=== PATIENT | male | born 1965 | race Caucasian/White ===

== ENCOUNTER 2018-01-29 15:13 | Inpatient (IN) | payer OTHER ==
[2018-01-29 15:21] VITALS: BMI 32.0
--- NOTE | 2018-01-29 18:20 | HP ---
COWS - Scale Resting Pulse: 1= [place] 81-100 Sweatin= Chills/Flushing Restless Observation: 3= Extraneous Movement Pupil Size: 2= Moderately Dilated Bone or Joint Aches: 4=Acute Joint/Muscle Pain (BACK PAIN) Runny Nose/ Eye Tearin= Nasal Congestion GI Upset > 30mins: 0= None Tremor Observation: 2= Slight Tremor Visible Yawning Observation: 1= 1-2x During Session Anxiety or Irritability: 2=Irritable/Anxious Goose Flesh Skin: 0=Smooth Skin COWS Score: 17 Admission ROS BHS - HPI Chief Complaint: WITHDRAWAL SX FROM PERCOCETS Allergies/Adverse Reactions: Allergies Allergy/AdvReac Type Severity Reaction Status Date / Time penicillin G Allergy Severe Hives Verified 01/29/18 16:35 History of Present Illness: 52 Y/O MALE WITH A HX OF PERCOCET DEPENDENCE SEEKING DETOX TX. PT STATES "IT WAS A RX BUT NOW IT'S NOT". Exam Limitations: No Limitations - Ebola screening Have you traveled outside of the country in the last 21 days: No Have you had contact with anyone from an Ebola affected area: No Have you been sick,other than usual withdrawal symptoms: No Do you have a fever: No - Review of Systems Constitutional: Chills, Night Sweats, Changes in sleep EENT: reports: Tearing, Nose Congestion Respiratory: reports: No Symptoms reported Cardiac: reports: No Symptoms Reported GI: reports: Constipated, Diarrhea, Nausea, Vomiting : reports: No Symptoms Reported Musculoskeletal: reports: Back Pain, Joint Pain, Muscle Pain Integumentary: reports: No Symptoms Reported Neuro: reports: Headache Endocrine: reports: No Symptoms Reported Hematology: reports: No Symptoms Reported Psychiatric: reports: Anxious, Depressed ("I TAKE PROZAC) Other Systems: Reviewed and Negative Patient History - Patient Medical History Hx Anemia: No Hx Asthma: No Hx Chronic Obstructive Pulmonary Disease (COPD): No Hx Cancer: No Hx Cardiac Disorders: No Hx Congestive Heart Failure: No Hx Hypertension: Yes (ON MED) Hx Hypercholesterolemia: Yes (ON MED) Hx Pacemaker: No HX Cerebrovascular Accident: No Hx Seizures: No Hx Dementia: No Hx Diabetes: No Hx Gastrointestinal Disorders: No Hx Liver Disease: No Hx Genitourinary Disorders: No Hx Sexually Transmitted Disorders: No Hx Renal Disease (ESRD): No Hx Thyroid Disease: No Hx Human Immunodeficiency Virus (HIV): No Hx Hepatitis C: No Hx Depression: Yes (prozac) Hx Suicide Attempt: No (DENIES S/I) Hx Bipolar Disorder: No Hx Schizophrenia: No - Patient Surgical History Past Surgical History: Yes Hx Neurologic Surgery: No Hx Cataract Extraction: No Hx Cardiac Surgery: No Hx Lung Surgery: No Hx Breast Surgery: No Hx Breast Biopsy: No Hx Abdominal Surgery: Yes (R inguinal hernia 20 yrs ago) Hx Appendectomy: No Hx Cholecystectomy: No Hx Genitourinary Surgery: No Hx Orthopedic Surgery: No Anesthesia Reaction: No - PPD History Previous Implant?: Yes Documented Results: Negative w/proof Date: 05/25/16 PPD to be Administered?: Yes - Reproductive History Patient is a Female of Child Bearing Age (11 -55 yrs old): No (MALE) - Smoking Cessation Smoking history: Current every day smoker Have you smoked in the past 12 months: Yes Aproximately how many cigarettes per day: 20 Hx Chewing Tobacco Use: No Initiated information on smoking cessation: Yes 'Breaking Loose' booklet given: 01/29/18 - Substance & Tx. History Hx Alcohol Use: No Hx Substance Use: Yes (PERCOCETS) Hx Substance Use Treatment: Yes - Substances Abused Marijuana/Hashish Route: Smoking Frequency: Daily Amount used: 1 blunt Date of Last Use: 01/27/18 Percocet Route: Oral Frequency: Daily Amount used: 12 ( 30mg) tablets Date of Last Use: 01/29/18 Family Disease History - Family Disease History Family Disease History: Heart Disease: Father (ALIVE) Admission Physical Exam BHS - Vital Signs Vital Signs: Vital Signs - 24 hr 01/29/18 15:20 Temperature 97 F L Pulse Rate 97 H Respiratory 18 Rate Blood Pressure 126/82 - Physical General Appearance: Yes: Moderate Distress, Irritable, Anxious HEENTM: Yes: EOMI, Normocephalic, SABRINA, Nasal Congestion Respiratory: Yes: Chest Non-Tender, Lungs Clear, Normal Breath Sounds Neck: Yes: No masses,lesions,Nodules, Supple, Trachea in good position Breast: Yes: Breast Exam Deferred Cardiology: Yes: Regular Rhythm, Regular Rate, S1, S2 Abdominal: Yes: Normal Bowel Sounds, Non Tender, Flat, Soft Genitourinary: Yes: Other (N/C) Back: Yes: Within Normal Limits Musculoskeletal: Yes: full range of Motion, Gait Steady Extremities: Yes: Normal Range of Motion, Non-Tender 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, Fully Oriented, Alert, Motor Strength 5/5 Integumentary: Yes: Dry, Warm Lymphatic: Yes: Within Normal Limits - Diagnostic (1) Opioid dependence with withdrawal Current Visit: Yes Status: Acute (2) History of - hypertension Current Visit: Yes Status: Chronic (3) Nicotine dependence Current Visit: Yes Status: Chronic Qualifiers: Nicotine product type: cigarettes Substance use status: uncomplicated Qualified Code(s): F17.210 - Nicotine dependence, cigarettes, uncomplicated (4) Cannabis dependence, uncomplicated Current Visit: Yes Status: Acute (5) Hypercholesterolemia Current Visit: Yes Status: Chronic Cleared for Admission [facility] - Detox or Rehab [facility] Level of Care: Medically Managed Detox Regimen/Protocol: Methadone [facility] Breath Alcohol Content Breath Alcohol Content: 0 Urine Drug Screen - Results Drug Screen Negative: No Urine Drug Screen Results: THC-Marijuana, MARLEN-Cocaine, OPI-Opiates, TCA- Tricyclic Antidepress, OXY-Oxycodone
[2018-01-29] MEDS ORDERED: P-EPHED 60MG/TRIPROLIDI 2.5MG TABLET PO PRN (18:33)
[2018-01-29] MEDS ORDERED: IBUPROFEN 400 MG TABLET (FP) PO PRN (18:33)
[2018-01-29] MEDS ORDERED: MAGNESIUM HYDROX 2400MG/30ML ORAL SUSPENSION 30 ML CUP PO PRN (18:33)
[2018-01-29] MEDS ORDERED: LOPERAMIDE HCL 2 MG CAPSULE PO PRN (18:33)
[2018-01-29] MEDS ORDERED: NICOTINE POLACRILEX 4 MG GUM BC PRN (18:33)
[2018-01-29] MEDS ORDERED: MENTHOL/PHENOL 1 EACH UD MM PRN (18:33)
[2018-01-29] MEDS ORDERED: MAG HYDROX/AL HYDROX/SIMETH 30 ML UNIT-DOSE CUP PO PRN (18:33)
[2018-01-29] MEDS ORDERED: ACETAMINOPHEN 325 MG TABLET (FP) PO PRN (18:33)
[2018-01-29] MEDS ORDERED: MAGNESIUM CITRATE 300 ML BOTTLE PO PRN (18:33)
[2018-01-29] MEDS ORDERED: guaiFENesin/D-METHORPHAN HB 10 ML UNIT-DOSE CUPS PO PRN (18:33)
[2018-01-29] MEDS ORDERED: METHADONE HCL 10 MG TABLET (FOR DETOX USE ONLY) PO ONE ×2 (19:15→23:00)
[2018-01-29] MEDS: NICOTINE 21 MG/24 HOURS TOPICAL PATCH TD SCH (19:28)
[2018-01-29] MEDS: diazePAM 5 MG TABLET PO PRN (19:32)
[2018-01-29 21:24] LABS: URINE APPEARANCE CLEAR; URINE BILIRUBIN NEGATIVE (<2.0 mg/dL); URINE BLOOD NEGATIVE (NEGATIVE); URINE COLOR LTYELLOW; URINE GLUCOSE (UA) NEGATIVE (NEGATIVE); URINE KETONE NEGATIVE (NEGATIVE); URINE LEUK ESTERASE NEGATIVE (NEGATIVE); URINE NITRITE NEGATIVE (NEGATIVE); URINE PROTEIN NEGATIVE (NEGATIVE); URINE UROBILINOGEN NEGATIVE mg/dL (0.2-1.0)
[2018-01-29] MEDS ORDERED: MELATONIN 5 MG TABLETS PO PRN (22:00)
[2018-01-29] MEDS: ATORVASTATIN CA 10 MG TABLET (FP) PO SCH (22:32)
[2018-01-29] MEDS: THIAMINE HCL 100 MG TABLET (FP) PO SCH (22:34)
[2018-01-30] MEDS: diazePAM 5 MG TABLET PO PRN ×3 (08:46→22:08)
[2018-01-30] MEDS ORDERED: METHADONE HCL 10 MG TABLET (FOR DETOX USE ONLY) PO ONE (10:00)
[2018-01-30] MEDS ORDERED: PATIENT'S OWN MEDICATION (NON-FORMULARY) (Lisinopril/Hydrochlorothiazide [Lisinopril-Hctz PO SCH (10:00)
[2018-01-30] MEDS: PRENATAL VITAMINS W/ FOLIC ACID TABLET (FP) PO SCH (10:06)
[2018-01-30] MEDS: HYDROCHLOROTHIAZIDE 12.5 MG CAPSULE (FP) PO SCH (10:06)
[2018-01-30] MEDS: NICOTINE 21 MG/24 HOURS TOPICAL PATCH TD SCH (10:06)
[2018-01-30] MEDS: LISINOPRIL 20 MG TABLET (FP) PO SCH (10:06)
[2018-01-30 10:22] LABS: CHLORIDE 100 mmol/L (98-107); POTASSIUM 4.2 mmol/L (3.5-5.1); SODIUM 137 mmol/L (136-145)
[2018-01-30 10:30] LABS: ALBUMIN 3.7 g/dl (3.4-5.0); ALK PHOS 56 U/L (45-117); ANION GAP 6 (8-16); BILIRUBIN,TOTAL 0.2 mg/dL (0.2-1.0); BLOOD UREA NITROGEN 18 mg/dL (7-18); CALCIUM 8.5 mg/dL (8.5-10.1); CO2 31 mmol/L (21-32); GLUCOSE,RANDOM 79 mg/dL (74-106); SGOT/AST 28 U/L (15-37); SGPT/ALT 27 U/L (12-78); TOT PROT 6.1 g/dl (6.4-8.2)
[2018-01-30 10:36] LABS: HEMATOCRIT 41.3 % (35.4-49); HEMOGLOBIN 13.9 GM/dL (11.7-16.9); MCH 29.9 pg (25.7-33.7); MCHC 33.7 g/dl (32.0-35.9); MEAN CELL VOLUME 88.8 fl (80-96); MEAN PLT VOLUME 8.4 fl (7.5-11.1); PLATELET COUNT 221 K/MM3 (134-434); RBC 4.65 M/mm3 (4.00-5.60); RDW 12.6 % (11.9-15.9); WHITE BLOOD COUNT 6.8 K/mm3 (4.0-10.0)
--- NOTE | 2018-01-30 10:43 | PN ---
S COWS - Scale Resting Pulse: 0= [place] 80 or Below Sweatin= Chills/Flushing Restless Observation: 3= Extraneous Movement Pupil Size: 2= Moderately Dilated Bone or Joint Aches: 1= Mild Discomfort Runny Nose/ Eye Tearin= Nasal Congestion GI Upset > 30mins: 0= None Tremor Observation of Outstretched Hands: 1= Tremor [place], Not Seen Yawning Observation: 1= 1-2x During Session Anxiety or Irritability: 2=Irritable/Anxious Goose Flesh Skin: 0=Smooth Skin COWS Score: 12 S Progress Note (SOAP) Subjective: ANXIETY,SWEATS,FATIGUE. Objective: 01/30/18 10:42 Vital Signs Temperature 96.6 F L 01/30/18 09:11 Pulse Rate 74 01/30/18 09:11 Respiratory Rate 18 01/30/18 09:11 Blood Pressure 118/79 01/30/18 09:11 O2 Sat by Pulse Oximetry (%) Laboratory Last Values WBC 6.8 K/mm3 (4.0-10.0) 01/30/18 07:30 RBC 4.65 M/mm3 (4.00-5.60) 01/30/18 07:30 Hgb 13.9 GM/dL (11.7-16.9) D 01/30/18 07:30 Hct 41.3 % (35.4-49) 01/30/18 07:30 MCV 88.8 fl (80-96) 01/30/18 07:30 MCH 29.9 pg (25.7-33.7) 01/30/18 07:30 MCHC 33.7 g/dl (32.0-35.9) 01/30/18 07:30 RDW 12.6 % (11.9-15.9) 01/30/18 07:30 Plt Count 221 K/MM3 (134-434) 01/30/18 07:30 MPV 8.4 fl (7.5-11.1) 01/30/18 07:30 Urine Color Ltyellow 01/29/18 20:00 Urine Appearance Clear 01/29/18 20:00 Urine pH 6.0 (5.0-8.0) 01/29/18 20:00 Ur Specific [place] 1.012 (1.001-1.035) 01/29/18 20:00 Urine Protein Negative (NEGATIVE) 01/29/18 20:00 Urine Glucose (UA) Negative (NEGATIVE) 01/29/18 20:00 Urine Ketones Negative (NEGATIVE) 01/29/18 20:00 Urine Blood Negative (NEGATIVE) 01/29/18 20:00 Urine Nitrite Negative (NEGATIVE) 01/29/18 20:00 Urine Bilirubin Negative (<2.0 mg/dL) 01/29/18 20:00 Urine Urobilinogen Negative mg/dL (0.2-1.0) 01/29/18 20:00 Ur Leukocyte Esterase Negative (NEGATIVE) 01/29/18 20:00 Assessment: 01/30/18 10:42 WITHDRAWAL SX Plan: CONTINUE DETOX VALIUM PRN DIRECTED.
--- NOTE | 2018-01-30 10:53 | EKG ---
Test Reason : Blood Pressure : / mmHG Vent. Rate : 080 BPM Atrial Rate : 080 BPM P-R Int : 152 ms QRS Dur : 086 ms QT Int : 368 ms P-R-T Axes : 050 004 032 degrees QTc Int : 424 ms NORMAL SINUS RHYTHM NORMAL ECG NO PREVIOUS ECGS AVAILABLE Confirmed by HUBER CARLOS, KHUSHBU ([id number]) on 01/30/2018 10:53:09 AM Referred By: Confirmed By:KHUSHBU NGO MD
--- NOTE | 2018-01-30 14:19 | CONSULT ---
[facility] Psychiatric Consult - Data Date of interview: 01/30/18 Admission source: [facility] Identifying data: Readmission to [facility] for this 52 y/o male seeking detox treatment on for opiate,cannabis and cocaine dependence.Patient is without children,domiciled and currently employed. Substance Abuse History: Confirmed by patient in this interview.Mr Pat has also endorsed intermittent use of cannabis. Details in current [facility] report : Smoking history: Current every day smoker. Have you smoked in the past 12 months: Yes. Aproximately how many cigarettes per day: 20. Hx Chewing Tobacco Use: No. Initiated information on smoking cessation: Yes. 'Breaking Loose' booklet given: 01/29/18. - Substance & Tx. History. Hx Alcohol Use: No. Hx Substance Use: Yes (PERCOCETS). Hx Substance Use Treatment: Yes. - Substances Abused. Marijuana/Hashish. Route: Smoking. Frequency: Daily. Amount used : 1 blunt. Date of Last Use: 01/27/18. Percocet. Route: Oral. Frequency: Daily. Amount used: 12 ( 30mg) tablets. Date of Last Use: 01/29/18 Medical History: Hypertension,dyslipidemia,chronic back pain and a distant history of right inguinal herniorraphy (20+ years ago). Psychiatric History: No reported history of psychiatric hospitalizations.Patient denies having a psychiatric disorder other than substance abuse-related issues.No psychiatric OPD care.Mr Pat used to be prescribed prozac (for depression) and seroquel for insomnia (from a psychiatrist at a previous detox facility).No history of suicide attempts. Physical/Sexual Abuse/Trauma History: Patient denies. Additional Comment: Urine Drug Screen Results: THC-Marijuana, MARLEN-Cocaine, OPI- Opiates, TCA-Tricyclic Antidepressant, OXY-Oxycodone.Noted. Mental Status Exam - Mental Status Exam Alert and Oriented to: Time, Place, Person Cognitive Function: Good Patient Appearance: Well Groomed Mood: Nervous, Withdrawn (dysphoric) Affect: Mood Congruent, Constricted (mildly) Patient Behavior: Appropriate, Cooperative Speech Pattern: Clear, Appropriate Voice Loudness: Normal Thought Process: Intact, Goal Oriented Thought Disorder: Not Present Hallucinations: Denies Suicidal Ideation: Denies Homicidal Ideation: Denies Insight/Judgement: Poor Sleep: Poorly, Difficulty falling asleep Appetite: Good Muscle strength/Tone: Normal Gait/Station: Normal Psychiatric Findings - Problem List ([place] 1, 2,3) (1) Opioid dependence with withdrawal Current Visit: Yes Status: Acute (2) Cannabis dependence, uncomplicated Current Visit: Yes Status: Acute (3) Nicotine dependence Current Visit: Yes Status: Acute Qualifiers: Nicotine product type: cigarettes Substance use status: uncomplicated Qualified Code(s): F17.210 - Nicotine dependence, cigarettes, uncomplicated (4) Drug-induced mood disorder Current Visit: Yes Status: Acute - Initial Treatment Plan Initial Treatment Plan: Psychoeducation.Sleep hygiene.Detoxification in progress.Prozac 20 mg po daily + Seroquel 100 mg po hs.Side effects/benefits discussed with patient.Made aware of the potential for sexual dysfunction, suicidal ideation,metabolic syndrome,cardiovascular adverse events,abnormal involuntary movements and oversedation/falls.Mr Pat agrees with this careplan.Observation.
[2018-01-30] MEDS: THIAMINE HCL 100 MG TABLET (FP) PO SCH (22:07)
[2018-01-30] MEDS: ATORVASTATIN CA 10 MG TABLET (FP) PO SCH (22:07)
[2018-01-30] MEDS: QUEtiapine FUMARATE 100 MG TABLET (FP) PO SCH (22:07)
[2018-01-31] MEDS: diazePAM 5 MG TABLET PO PRN ×4 (08:26→22:12)
[2018-01-31] MEDS: LISINOPRIL 20 MG TABLET (FP) PO SCH (09:37)
[2018-01-31] MEDS: FLUoxetine HCL 20 MG CAPSULE (FP) PO SCH (09:37)
[2018-01-31] MEDS: PRENATAL VITAMINS W/ FOLIC ACID TABLET (FP) PO SCH (09:37)
[2018-01-31] MEDS: NICOTINE 21 MG/24 HOURS TOPICAL PATCH TD SCH (09:39)
[2018-01-31] MEDS: HYDROCHLOROTHIAZIDE 12.5 MG CAPSULE (FP) PO SCH (09:40)
[2018-01-31] MEDS ORDERED: METHADONE HCL 5 MG TABLET (FOR DETOX USE ONLY) PO ONE (10:00)
--- NOTE | 2018-01-31 10:30 | PN ---
BHS COWS - Scale Resting Pulse: 1= [place] 81-100 Sweatin= Chills/Flushing Restless Observation: 3= Extraneous Movement Pupil Size: 2= Moderately Dilated Bone or Joint Aches: 4=Acute Joint/Muscle Pain Runny Nose/ Eye Tearin= Nasal Congestion GI Upset > 30mins: 0= None Tremor Observation of Outstretched Hands: 1= Tremor [place], Not Seen Yawning Observation: 1= 1-2x During Session Anxiety or Irritability: 2=Irritable/Anxious Goose Flesh Skin: 0=Smooth Skin COWS Score: 16 BHS Progress Note (SOAP) Subjective: ANXIETY,IRRITABILITY,BACK PAIN,INTERMITTENT SLEEP. Objective: 01/31/18 10:29 Vital Signs Temperature 96.3 F L 01/31/18 09:19 Pulse Rate 96 H 01/31/18 09:19 Respiratory Rate 16 01/31/18 09:19 Blood Pressure 120/82 01/31/18 09:19 O2 Sat by Pulse Oximetry (%) Laboratory Last Values WBC 6.8 K/mm3 (4.0-10.0) 01/30/18 07:30 RBC 4.65 M/mm3 (4.00-5.60) 01/30/18 07:30 Hgb 13.9 GM/dL (11.7-16.9) D 01/30/18 07:30 Hct 41.3 % (35.4-49) 01/30/18 07:30 MCV 88.8 fl (80-96) 01/30/18 07:30 MCH 29.9 pg (25.7-33.7) 01/30/18 07:30 MCHC 33.7 g/dl (32.0-35.9) 01/30/18 07:30 RDW 12.6 % (11.9-15.9) 01/30/18 07:30 Plt Count 221 K/MM3 (134-434) 01/30/18 07:30 MPV 8.4 fl (7.5-11.1) 01/30/18 07:30 Sodium 137 mmol/L (136-145) 01/30/18 07:30 Potassium 4.2 mmol/L (3.5-5.1) 01/30/18 07:30 Chloride 100 mmol/L (98-107) 01/30/18 07:30 Carbon Dioxide 31 mmol/L (21-32) 01/30/18 07:30 Anion Gap 6 (8-16) L 01/30/18 07:30 BUN 18 mg/dL (7-18) D 01/30/18 07:30 Creatinine 1.0 mg/dL (0.7-1.3) 01/30/18 07:30 Creat Clearance w eGFR > 60 (>60) 01/30/18 07:30 Random Glucose 79 mg/dL (74-106) 01/30/18 07:30 Calcium 8.5 mg/dL (8.5-10.1) 01/30/18 07:30 Total Bilirubin 0.2 mg/dL (0.2-1.0) 01/30/18 07:30 AST 28 U/L (15-37) D 01/30/18 07:30 ALT 27 U/L (12-78) D 01/30/18 07:30 Alkaline Phosphatase 56 U/L (45-117) 01/30/18 07:30 Total Protein 6.1 g/dl (6.4-8.2) L 01/30/18 07:30 Albumin 3.7 g/dl (3.4-5.0) 01/30/18 07:30 Urine Color Ltyellow 01/29/18 20:00 Urine Appearance Clear 01/29/18 20:00 Urine pH 6.0 (5.0-8.0) 01/29/18 20:00 Ur Specific [place] 1.012 (1.001-1.035) 01/29/18 20:00 Urine Protein Negative (NEGATIVE) 01/29/18 20:00 Urine Glucose (UA) Negative (NEGATIVE) 01/29/18 20:00 Urine Ketones Negative (NEGATIVE) 01/29/18 20:00 Urine Blood Negative (NEGATIVE) 01/29/18 20:00 Urine Nitrite Negative (NEGATIVE) 01/29/18 20:00 Urine Bilirubin Negative (<2.0 mg/dL) 01/29/18 20:00 Urine Urobilinogen Negative mg/dL (0.2-1.0) 01/29/18 20:00 Ur Leukocyte Esterase Negative (NEGATIVE) 01/29/18 20:00 RPR Titer Nonreactive (NONREACTIVE) 01/30/18 07:30 Assessment: 01/31/18 10:29 WITHDRAWAL SX BACK PAIN Plan: CONTINUE DETOX LIDOCAINE PATCH 5% DIRECTED FLEXERIL 10 MG PO TID PRN
[2018-01-31] MEDS: LIDOCAINE 5% TOPICAL PATCH TP SCH (11:11)
[2018-01-31] MEDS: CYCLOBENZAPRINE HCL 10 MG TABLET (FP) PO PRN (12:45)
[2018-01-31] MEDS: LIDOCAINE PATCH REMOVAL MC SCH (22:10)
[2018-01-31] MEDS: QUEtiapine FUMARATE 100 MG TABLET (FP) PO SCH (22:10)
[2018-01-31] MEDS: ATORVASTATIN CA 10 MG TABLET (FP) PO SCH (22:10)
[2018-01-31] MEDS: THIAMINE HCL 100 MG TABLET (FP) PO SCH (22:10)
[2018-02-01] MEDS: CYCLOBENZAPRINE HCL 10 MG TABLET (FP) PO PRN ×2 (05:42→22:27)
[2018-02-01] MEDS: diazePAM 5 MG TABLET PO PRN ×4 (05:42→18:04)
[2018-02-01] MEDS ORDERED: METHADONE HCL 5 MG TABLET (FOR DETOX USE ONLY) PO ONE (10:00)
[2018-02-01] MEDS: HYDROCHLOROTHIAZIDE 12.5 MG CAPSULE (FP) PO SCH (10:07)
[2018-02-01] MEDS: NICOTINE 21 MG/24 HOURS TOPICAL PATCH TD SCH (10:07)
[2018-02-01] MEDS: LIDOCAINE 5% TOPICAL PATCH TP SCH (10:07)
[2018-02-01] MEDS: LISINOPRIL 20 MG TABLET (FP) PO SCH (10:07)
[2018-02-01] MEDS: PRENATAL VITAMINS W/ FOLIC ACID TABLET (FP) PO SCH (10:07)
[2018-02-01] MEDS: FLUoxetine HCL 20 MG CAPSULE (FP) PO SCH (10:07)
--- NOTE | 2018-02-01 10:15 | PN ---
S Progress Note (SOAP) Subjective: SLIGHT ANXIETY, SWEATS.ALERT O X 3. OOB AMBULATING WITH STEADY GAIT. Objective: 02/01/18 10:15 Vital Signs Temperature 97.4 F L 02/01/18 09:09 Pulse Rate 96 H 02/01/18 09:09 Respiratory Rate 18 02/01/18 09:09 Blood Pressure 108/76 02/01/18 09:09 O2 Sat by Pulse Oximetry (%) Laboratory Last Values WBC 6.8 K/mm3 (4.0-10.0) 01/30/18 07:30 RBC 4.65 M/mm3 (4.00-5.60) 01/30/18 07:30 Hgb 13.9 GM/dL (11.7-16.9) D 01/30/18 07:30 Hct 41.3 % (35.4-49) 01/30/18 07:30 MCV 88.8 fl (80-96) 01/30/18 07:30 MCH 29.9 pg (25.7-33.7) 01/30/18 07:30 MCHC 33.7 g/dl (32.0-35.9) 01/30/18 07:30 RDW 12.6 % (11.9-15.9) 01/30/18 07:30 Plt Count 221 K/MM3 (134-434) 01/30/18 07:30 MPV 8.4 fl (7.5-11.1) 01/30/18 07:30 Sodium 137 mmol/L (136-145) 01/30/18 07:30 Potassium 4.2 mmol/L (3.5-5.1) 01/30/18 07:30 Chloride 100 mmol/L (98-107) 01/30/18 07:30 Carbon Dioxide 31 mmol/L (21-32) 01/30/18 07:30 Anion Gap 6 (8-16) L 01/30/18 07:30 BUN 18 mg/dL (7-18) D 01/30/18 07:30 Creatinine 1.0 mg/dL (0.7-1.3) 01/30/18 07:30 Creat Clearance w eGFR > 60 (>60) 01/30/18 07:30 Random Glucose 79 mg/dL (74-106) 03/28/18 07:30 Calcium 8.5 mg/dL (8.5-10.1) 01/30/18 07:30 Total Bilirubin 0.2 mg/dL (0.2-1.0) 01/30/18 07:30 AST 28 U/L (15-37) D 01/30/18 07:30 ALT 27 U/L (12-78) D 01/30/18 07:30 Alkaline Phosphatase 56 U/L (45-117) 01/30/18 07:30 Total Protein 6.1 g/dl (6.4-8.2) L 01/30/18 07:30 Albumin 3.7 g/dl (3.4-5.0) 01/30/18 07:30 Urine Color Ltyellow 01/29/18 20:00 Urine Appearance Clear 01/29/18 20:00 Urine pH 6.0 (5.0-8.0) 01/29/18 20:00 Ur Specific [place] 1.012 (1.001-1.035) 01/29/18 20:00 Urine Protein Negative (NEGATIVE) 01/29/18 20:00 Urine Glucose (UA) Negative (NEGATIVE) 01/29/18 20:00 Urine Ketones Negative (NEGATIVE) 01/29/18 20:00 Urine Blood Negative (NEGATIVE) 01/29/18 20:00 Urine Nitrite Negative (NEGATIVE) 01/29/18 20:00 Urine Bilirubin Negative (<2.0 mg/dL) 01/29/18 20:00 Urine Urobilinogen Negative mg/dL (0.2-1.0) 01/29/18 20:00 Ur Leukocyte Esterase Negative (NEGATIVE) 01/29/18 20:00 RPR Titer Nonreactive (NONREACTIVE) 01/30/18 07:30 Assessment: 02/01/18 10:16 WITHDRAWAL SX Plan: CONTINUE DETOX
[2018-02-01] MEDS: QUEtiapine FUMARATE 100 MG TABLET (FP) PO SCH (22:26)
[2018-02-01] MEDS: THIAMINE HCL 100 MG TABLET (FP) PO SCH (22:26)
[2018-02-01] MEDS: ATORVASTATIN CA 10 MG TABLET (FP) PO SCH (22:27)
[2018-02-01] MEDS: LIDOCAINE PATCH REMOVAL MC SCH (22:27)
[2018-02-02] MEDS: HYDROCHLOROTHIAZIDE 12.5 MG CAPSULE (FP) PO SCH (09:49)
[2018-02-02] MEDS: PRENATAL VITAMINS W/ FOLIC ACID TABLET (FP) PO SCH (09:49)
[2018-02-02] MEDS: LISINOPRIL 20 MG TABLET (FP) PO SCH (09:49)
[2018-02-02] MEDS: FLUoxetine HCL 20 MG CAPSULE (FP) PO SCH (09:49)
[2018-02-02] MEDS ORDERED: METHADONE HCL 10 MG TABLET (FOR DETOX USE ONLY) PO ONE (10:00)
[2018-02-02 10:59] VITALS: BP 109/67; PULSE 94; TEMP 97.4
--- NOTE | 2018-02-02 18:17 | PN ---
BHS Progress Note (SOAP) Subjective: Patient denies any current Detox symptoms and reports that he is feeling well overall. Objective: PATIENT A & O X 3, OBSERVED AMBULATING ON UNIT. NO ACUTE DISTRESS. 02/02/18 18:15 Vital Signs Temperature 97.4 F L 02/02/18 10:58 Pulse Rate 94 H 02/02/18 10:58 Respiratory Rate 18 02/02/18 10:58 Blood Pressure 109/67 02/02/18 10:58 O2 Sat by Pulse Oximetry (%) Laboratory Tests 01/29/18 01/30/18 01/30/18 20:00 07:30 07:30 WBC 6.8 RBC 4.65 Hgb 13.9 D Hct 41.3 MCV 88.8 MCH 29.9 MCHC 33.7 RDW 12.6 Plt Count 221 MPV 8.4 Sodium 137 Potassium 4.2 Chloride 100 Carbon Dioxide 31 Anion Gap 6 L BUN 18 D Creatinine 1.0 Creat Clearance w eGFR > 60 Random Glucose 79 Calcium 8.5 Total Bilirubin 0.2 AST 28 D ALT 27 D Alkaline Phosphatase 56 Total Protein 6.1 L Albumin 3.7 Urine Color Ltyellow Urine Appearance Clear Urine pH 6.0 Ur Specific [place] 1.012 Urine Protein Negative Urine Glucose (UA) Negative Urine Ketones Negative Urine Blood Negative Urine Nitrite Negative Urine Bilirubin Negative Urine Urobilinogen Negative Ur Leukocyte Esterase Negative RPR Titer 01/30/18 07:30 WBC RBC Hgb Hct MCV MCH MCHC RDW Plt Count MPV Sodium Potassium Chloride Carbon Dioxide Anion Gap BUN Creatinine Creat Clearance w eGFR Random Glucose Calcium Total Bilirubin AST ALT Alkaline Phosphatase Total Protein Albumin Urine Color Urine Appearance Urine pH Ur Specific [place] Urine Protein Urine Glucose (UA) Urine Ketones Urine Blood Urine Nitrite Urine Bilirubin Urine Urobilinogen Ur Leukocyte Esterase RPR Titer Nonreactive LABS NOTED. Assessment: 02/02/18 18:16 COMPLETION OF DETOX REGIMEN. Plan: PATIENT SCHEDULED FOR DISCHARGE FROM DETOX TODAY.
--- NOTE | 2018-02-02 18:21 | DS ---
[facility] Detox Discharge Summary Admission Date: 01/29/18 Discharge Date: 02/02/18 - History Present History: Cannabis Dependence, Opioid Dependence Additional Comments: PATIENT DENIES CURRENT DETOX SYMPTOMS AND REPORTS THAT HE FEELS WELL OVERALL AT TIME OF DISCHARGE. PATIENT ADVISED TO CONSIDER LOCAL 12-STEP / NA OUTPATIENT SUPPORT GROUPS FOR AFTERCARE. PATIENT WAS DISCHARGED FROM DETOX UNIT IN STABLE MEDICAL CONDITION. Pertinent Past History: HTN, Hypercholesterolemia, Nicotine Dependence, Depression. - Physical Exam Results Vital Signs: Vital Signs Temperature 97.4 F L 02/02/18 10:58 Pulse Rate 94 H 02/02/18 10:58 Respiratory Rate 18 02/02/18 10:58 Blood Pressure 109/67 02/02/18 10:58 O2 Sat by Pulse Oximetry (%) Pertinent Admission Physical Exam Findings: WITHDRAWAL SYMPTOMS. Laboratory Tests 01/29/18 01/30/18 01/30/18 20:00 07:30 07:30 WBC 6.8 RBC 4.65 Hgb 13.9 D Hct 41.3 MCV 88.8 MCH 29.9 MCHC 33.7 RDW 12.6 Plt Count 221 MPV 8.4 Sodium 137 Potassium 4.2 Chloride 100 Carbon Dioxide 31 Anion Gap 6 L BUN 18 D Creatinine 1.0 Creat Clearance w eGFR > 60 Random Glucose 79 Calcium 8.5 Total Bilirubin 0.2 AST 28 D ALT 27 D Alkaline Phosphatase 56 Total Protein 6.1 L Albumin 3.7 Urine Color Ltyellow Urine Appearance Clear Urine pH 6.0 Ur Specific [place] 1.012 Urine Protein Negative Urine Glucose (UA) Negative Urine Ketones Negative Urine Blood Negative Urine Nitrite Negative Urine Bilirubin Negative Urine Urobilinogen Negative Ur Leukocyte Esterase Negative RPR Titer 01/30/18 07:30 WBC RBC Hgb Hct MCV MCH MCHC RDW Plt Count MPV Sodium Potassium Chloride Carbon Dioxide Anion Gap BUN Creatinine Creat Clearance w eGFR Random Glucose Calcium Total Bilirubin AST ALT Alkaline Phosphatase Total Protein Albumin Urine Color Urine Appearance Urine pH Ur Specific [place] Urine Protein Urine Glucose (UA) Urine Ketones Urine Blood Urine Nitrite Urine Bilirubin Urine Urobilinogen Ur Leukocyte Esterase RPR Titer Nonreactive LABS NOTED. - Treatment Hospital Course: Detox Protocol Followed, Detoxed Safely, Responded well, Discharged Condition Good Patient has Accepted a Rehab Referral to: PT. GOING HOME, ADVISED TO CONSIDER LOCAL 12-STEP/NA SUPPORT GROUPS. - Medication Discharge Medications: Ambulatory Orders Fluoxetine HCl [Prozac -] 20 mg PO DAILY 07/19/16 Lisinopril/Hydrochlorothiazide [Lisinopril-Hctz 20-12.5 mg Tab] 1 each PO DAILY 05/23/16 Lovastatin [Altoprev] 40 mg PO DAILY 05/23/16 Quetiapine Fumarate [Seroquel] 200 tab PO HS #30 tablet 05/24/16 - Diagnosis (1) Cannabis dependence, uncomplicated Status: Acute (2) Drug-induced mood disorder Status: Acute (3) Nicotine dependence Status: Acute Qualifiers: Nicotine product type: cigarettes Substance use status: uncomplicated Qualified Code(s): F17.210 - Nicotine dependence, cigarettes, uncomplicated (4) Opioid dependence with withdrawal Status: Acute (5) History of - hypertension Status: Chronic (6) Hypercholesterolemia Status: Chronic - AMA Did Patient Leave Against Medical Advice: No
[2018-02-03] MEDS ORDERED: METHADONE HCL 5 MG TABLET (FOR DETOX USE ONLY) PO ONE (06:00)
== END 2018-02-02 10:25 | disposition home or self-care (01) | DRG 773 ==
LOC: YASAS 15:13 → Y3N 17:51
PROVIDERS: ADMIT Internal Medicine; ATTEND Internal Medicine
PROC: HZ2ZZZZ Detoxification Services for Substance Abuse Treatment (ICD-10-PCS; principal; 2018-01-29)
DX: F11.23 Opioid dependence with withdrawal (principal); F12.20 Cannabis dependence, uncomplicated; F17.210 Nicotine dependence, cigarettes, uncomplicated; F19.24 Other psychoactive substance dependence with psychoactive substance-induced mood disorder; I10 Essential (primary) hypertension; E78.5 Hyperlipidemia, unspecified; Z88.0 Allergy status to penicillin
CPT/HCPCS: 36415; 80053; 81003; 85027; 86593; 93005; 93010